=== PATIENT | female | born 1995 | race Caucasian/White ===

== ENCOUNTER 2023-08-10 12:39 | Emergency (ER) | payer SELFPAY ==
[2023-08-10 12:57] VITALS: BP 132/89; PULSE 99; RESP 16; TEMP 36.9; O2SAT 98; BMI 22.7
[2023-08-10 13:27] LABS: Add Manual Diff / Slide Review NO; Basophils Absolute Auto 0 /uL (0-100); Basophils Percent Auto 0.6 % (0-2); Eosinophils Absolute Auto 0 /uL (0-450); Eosinophils Percent Auto 0.3 % (2-4); Hemoglobin 14.5 g/dL (12.0-16.0); Lymphocytes Absolute Auto 2300 /uL (1100-4500); Mean Corpuscular HGB Conc 34.5 % (30-36); Mean Corpuscular Hemoglobin 33.4 PG (26-34); Mean Corpuscular Volume 96.7 fL (80-100); Monocytes Absolute Auto 500 /uL (0-900); Monocytes Percent Auto 9.6 % (3-14); Neutrophils Absolute Auto 2400 /uL (1500-7000); Neutrophils Percent Auto 45.5 % (50-75); Platelet Count 298 X10^3/uL (150-400); Red Blood Cell Count 4.35 X10^6/uL (4.0-5.2); Red Cell Distribution Width 11.9 % (11.6-14.8); White Blood Cell Count 5.2 X10^3/uL (4.5-11.0)
--- NOTE | 2023-08-10 13:34 | PC.NURSE ---
Unsteady gait with ambulation, alcohol on breath. hard to quantify how much I have drank, alot EMS reports many buzz balls, boxes of wine in hotel room.
[2023-08-10 13:40] LABS: Acetaminophen < 10 ug/mL (10-30); Alanine Aminotransferase 26 IU/L (<35); Albumin 4.5 g/dL (3.5-5.0); Albumin Globulin Ratio 1.5 (1.0-2.8); Alkaline Phosphatase 77 U/L (38-126); Aspartate Aminotransferase 58 IU/L (14-36); BUN Creatinine Ratio 8.5 (6-22); Bilirubin Total 0.4 mg/dL (0.2-1.3); Blood Urea Nitrogen 6 mg/dL (7-17); Carbon Dioxide 23 mmol/L (22-32); Chloride 109 mmol/L (98-107); Estimated Glomerular Filt Rate > 60 mL/min (>60); Globulin 3.1 g/dL (1.7-4.1); Glucose 104 mg/dL (70-100); HEMOLYSIS < 15 (0-50); Potassium 3.9 mmol/L (3.4-5.1); Salicylate < 1.0 mg/dL (<20); Sodium 143 mmol/L (137-145); Total Protein 7.6 g/dL (6.3-8.2)
[2023-08-10 13:47] LABS: Ethanol (ETOH) 382 mg/dL
[2023-08-10 14:05] LABS: Free T4, Direct Thyroxine 1.27 ng/dL (0.78-2.19)
[2023-08-10 14:16] LABS: UR Morphine/Opiate cutoff 300 Negative (Negative); Ur Creatinine Normal (Normal); Ur Specific Gravity Normal (Normal); Urine Amphetamines Negative (Negative); Urine Barbiturates Negative (Negative); Urine Benzodiazepines Negative (Negative); Urine Cocaine Negative (Negative); Urine MDMA Negative (Negative); Urine Methadone Negative (Negative); Urine Methamphetamines Negative (Negative); Urine Oxycodone Negative (Negative); Urine Phencyclidine Negative (Negative); Urine Tetrahydrocannabinol Negative (Negative); Urine Tricyclic Antidepressant Negative (Negative); Urine pH Normal (Normal)
[2023-08-10 14:19] LABS: Thyroid Stimulating Hormone 0.659 uIU/mL (0.47-4.68)
--- NOTE | 2023-08-10 14:20 | ED.GENADULT ---
HPI - General Adult <Laci Hamilton DO - Last Filed: 08/15/23 07:08> General Chief complaint: Toxicology Problem Stated complaint: ETOH Time Seen by Provider: 08/10/23 13:20 Source: patient and EMS Mode of arrival: EMS Limitations: no limitations History of Present Illness HPI narrative: Patient is a 27-year-old female. States she does not have any diagnosed with mental health issues. Has had a problem with alcohol in the past. She states that earlier today she had some sort of interaction with her sister. This caused her to want to hurt herself. States she tried to stab herself in the left side of the neck. She was also been drinking alcohol. Denies any other medical problems. She has seen a therapist in the past with the last time she saw the therapist was earlier this year. No prior admissions to the hospital for mental health issues. Has had suicidal thoughts in the past but has never acted on them. Review of Systems <Laci Hamilton DO - Last Filed: 08/15/23 07:08> Constitutional Constitutional: Reports system reviewed and no additional complaints, except as documented Cardiovascular Cardiovascular: Reports system reviewed and no additional complaints, except as documented Respiratory Respiratory: Reports system reviewed and no additional complaints, except as documented Integumentary/Breasts Skin/Breast: Reports system reviewed and no additional complaints, except as documented Neurologic Neurologic: Reports system reviewed and no additional complaints, except as documented Psychiatric Psychiatric: Reports system reviewed and no additional complaints, except as documented Patient History <Laci Hamilton DO - Last Filed: 08/15/23 07:08> Social History Smoking Status: Never smoker Smoking Status: Never smoker alcohol intake frequency: 3 or more drinks per day Alcohol type: wine Substance Use Type: does not use Exam <Laci Hamilton DO - Last Filed: 08/15/23 07:08> Initial Vital Signs Initial Vital Signs: Vital Signs Temperature 98.5 F 08/10/23 12:57 Pulse Rate 99 H 08/10/23 12:57 Respiratory Rate 16 08/10/23 12:57 Blood Pressure 132/89 08/10/23 12:57 Pulse Oximetry 98 08/10/23 12:57 Oxygen Delivery Method Room Air 08/10/23 12:57 Const General: cooperative, comfortable and No ill appearing HENAK Head: normal to inspection and normocephalic Neck Neck: normal visual inspection Resp Effort & Inspection: normal respiratory effort Auscultation: clear to auscultation bilaterally Cardio Rate: regular rate Rhythm: regular rhythm Skin Other: No signs of any scratches or lacerations in the neck region. Neuro General: patient alert, patient awake and patient oriented x3 Psych Other: Patient does have a flat affect. He is calm. Is cooperative. Does have suicidal thoughts. <Sanjay Mendoza MD - Last Filed: 08/11/23 15:28> Initial Vital Signs Initial Vital Signs: Vital Signs Temperature 98.5 F 08/10/23 12:57 Pulse Rate 99 H 08/10/23 12:57 Respiratory Rate 16 08/10/23 12:57 Blood Pressure 132/89 08/10/23 12:57 Pulse Oximetry 98 08/10/23 12:57 Oxygen Delivery Method Room Air 08/10/23 12:57 Course <Laci Hamilton DO - Last Filed: 08/15/23 07:08> Orders Ordered: ED Orders 08/10/23 17:05 ETOH [Ethanol (ETOH)] Stat 08/10/23 22:00 ETOH [Ethanol (ETOH)] Stat Vital Signs Vital signs: Vital Signs - 8 hr 08/10/23 21:03 Pulse Rate 102 H Respiratory Rate 14 Blood Pressure 129/84 Pulse Oximetry 96 Oxygen Delivery Method Room Air <Sanjay Mendoza MD - Last Filed: 08/11/23 15:28> Orders Ordered: ED Orders 08/10/23 17:05 ETOH [Ethanol (ETOH)] Stat 08/10/23 22:00 ETOH [Ethanol (ETOH)] Stat Vital Signs Vital signs: Vital Signs - 8 hr 08/10/23 21:03 Pulse Rate 102 H Respiratory Rate 14 Blood Pressure 129/84 Pulse Oximetry 96 Oxygen Delivery Method Room Air Medical Decision Making <DO Timi Zimmer Last Filed: 08/15/23 07:08> Lab Data 08/10/23 13:15 08/10/23 13:15 Labs: Lab Results 08/10/23 08/10/23 08/10/23 Range/Units 13:15 14:03 14:35 WBC 5.2 (4.5-11.0) X10^3/uL RBC 4.35 (4.0-5.2) X10^6/uL Hgb 14.5 (12.0-16.0) g/dL Hct 42.0 (36-46) % MCV 96.7 (80-100) fL MCH 33.4 (26-34) PG MCHC 34.5 (30-36) % RDW 11.9 (11.6-14.8) % Plt Count 298 (150-400) X10^3/uL Neut % (Auto) 45.5 L (50-75) % Lymph % (Auto) 44.0 H (25-40) % Woodson % (Auto) 9.6 (3-14) % Eos % (Auto) 0.3 L (2-4) % Baso % (Auto) 0.6 (0-2) % Neut # (Auto) 2400 (6268-2218) /uL Lymph # (Auto) 2300 (3420-9509) /uL Woodson # (Auto) 500 (0-900) /uL Eos # (Auto) 0 (0-450) /uL Baso # (Auto) 0 (0-100) /uL Sodium 143 (137-145) mmol/L Potassium 3.9 (3.4-5.1) mmol/L Chloride 109 H (98-107) mmol/L Carbon Dioxide 23 (22-32) mmol/L BUN 6 L (7-17) mg/dL Creatinine 0.71 (0.52-1.04) mg/dL Estimated GFR > 60 (>60) mL/min BUN/Creatinine Ratio 8.5 (6-22) Glucose 104 H (70-100) mg/dL Calcium 8.0 L (8.4-10.2) mg/dL Total Bilirubin 0.4 (0.2-1.3) mg/dL AST 58 H (14-36) IU/L ALT 26 (<35) IU/L Alkaline Phosphatase 77 (38-126) U/L Total Protein 7.6 (6.3-8.2) g/dL Albumin 4.5 (3.5-5.0) g/dL Globulin 3.1 (1.7-4.1) g/dL Albumin/Globulin Ratio 1.5 (1.0-2.8) TSH 0.659 (0.47-4.68) uIU/mL Free T4 1.27 (0.78-2.19) ng/dL Salicylates < 1.0 (<20) mg/dL U Opiates 300ng/mL cut Negative (Negative) Ur Oxycodone Screen Negative (Negative) Urine Methadone Screen Negative (Negative) Acetaminophen < 10 (10-30) ug/mL Ur Barbiturates Screen Negative (Negative) U Tricyclic Antidepress Negative (Negative) Ur Phencyclidine Scrn Negative (Negative) Ur Amphetamines Screen Negative (Negative) U Methamphetamines Scrn Negative (Negative) Ur MDMA Scrn (Ecstasy) Negative (Negative) U Benzodiazepines Scrn Negative (Negative) Urine Cocaine Screen Negative (Negative) U Marijuana (THC) Screen Negative (Negative) Urine pH Normal (Normal) Urine Specific Cowden Normal (Normal) Ethyl Alcohol 382 H ( - 10) mg/dL Ur Creatinine Normal (Normal) SARS-CoV-2 (PCR) Negative (Negative) 08/10/23 08/10/23 Range/Units 17:05 22:00 WBC (4.5-11.0) X10^3/uL RBC (4.0-5.2) X10^6/uL Hgb (12.0-16.0) g/dL Hct (36-46) % MCV (80-100) fL MCH (26-34) PG MCHC (30-36) % RDW (11.6-14.8) % Plt Count (150-400) X10^3/uL Neut % (Auto) (50-75) % Lymph % (Auto) (25-40) % Woodson % (Auto) (3-14) % Eos % (Auto) (2-4) % Baso % (Auto) (0-2) % Neut # (Auto) (7325-7141) /uL Lymph # (Auto) (2690-9275) /uL Woodson # (Auto) (0-900) /uL Eos # (Auto) (0-450) /uL Baso # (Auto) (0-100) /uL Sodium (137-145) mmol/L Potassium (3.4-5.1) mmol/L Chloride (98-107) mmol/L Carbon Dioxide (22-32) mmol/L BUN (7-17) mg/dL Creatinine (0.52-1.04) mg/dL Estimated GFR (>60) mL/min BUN/Creatinine Ratio (6-22) Glucose (70-100) mg/dL Calcium (8.4-10.2) mg/dL Total Bilirubin (0.2-1.3) mg/dL AST (14-36) IU/L ALT (<35) IU/L Alkaline Phosphatase (38-126) U/L Total Protein (6.3-8.2) g/dL Albumin (3.5-5.0) g/dL Globulin (1.7-4.1) g/dL Albumin/Globulin Ratio (1.0-2.8) TSH (0.47-4.68) uIU/mL Free T4 (0.78-2.19) ng/dL Salicylates (<20) mg/dL U Opiates 300ng/mL cut (Negative) Ur Oxycodone Screen (Negative) Urine Methadone Screen (Negative) Acetaminophen (10-30) ug/mL Ur Barbiturates Screen (Negative) U Tricyclic Antidepress (Negative) Ur Phencyclidine Scrn (Negative) Ur Amphetamines Screen (Negative) U Methamphetamines Scrn (Negative) Ur MDMA Scrn (Ecstasy) (Negative) U Benzodiazepines Scrn (Negative) Urine Cocaine Screen (Negative) U Marijuana (THC) Screen (Negative) Urine pH (Normal) Urine Specific Cowden (Normal) Ethyl Alcohol 298 H 169 H ( - 10) mg/dL Ur Creatinine (Normal) SARS-CoV-2 (PCR) (Negative) Point of Care Testing Test Results Negative Urine Dip Bedside Urine Glucose Negative Bedside Urine Bilirubin - Negative Bedside Urine Ketone - Negative Urine Specific Cowden 1.005 Bedside Urine Occult Blood - Negative Bedside Urine pH 6.0 Bedside Urine Protein - Negative Bedside Urine Urobilinogen - Negative Bedside Urine Nitrite - Negative Bedside Urine Leukocytes - Negative Esterase Point of care testing: Point of Care Testing Test Results Negative Urine Dip Bedside Urine Glucose Negative Bedside Urine Bilirubin - Negative Bedside Urine Ketone - Negative Urine Specific Cowden 1.005 Bedside Urine Occult Blood - Negative Bedside Urine pH 6.0 Bedside Urine Protein - Negative Bedside Urine Urobilinogen - Negative Bedside Urine Nitrite - Negative Bedside Urine Leukocytes - Negative Esterase MDM Narrative Medical decision making narrative: Patient was voluntary. Is medically cleared other than her alcohol level is significantly elevated although she was alert and oriented with a GCS of 15. There was no signs of trauma with regard to the reported event where she tried to stab herself in her neck. No indication for any imaging studies. Social work has been consulted. Care turned over to Dr. Mendoza to follow-up with repeated alcohol levels with anticipation of transfer to rehab facility. <Sanjay Mendoza MD - Last Filed: 08/11/23 15:28> Lab Data Labs: Lab Results 08/10/23 08/10/23 08/10/23 Range/Units 13:15 14:03 14:35 WBC 5.2 (4.5-11.0) X10^3/uL RBC 4.35 (4.0-5.2) X10^6/uL Hgb 14.5 (12.0-16.0) g/dL Hct 42.0 (36-46) % MCV 96.7 (80-100) fL MCH 33.4 (26-34) PG MCHC 34.5 (30-36) % RDW 11.9 (11.6-14.8) % Plt Count 298 (150-400) X10^3/uL Neut % (Auto) 45.5 L (50-75) % Lymph % (Auto) 44.0 H (25-40) % Woodson % (Auto) 9.6 (3-14) % Eos % (Auto) 0.3 L (2-4) % Baso % (Auto) 0.6 (0-2) % Neut # (Auto) 2400 (9444-5586) /uL Lymph # (Auto) 2300 (3194-7676) /uL Woodson # (Auto) 500 (0-900) /uL Eos # (Auto) 0 (0-450) /uL Baso # (Auto) 0 (0-100) /uL Sodium 143 (137-145) mmol/L Potassium 3.9 (3.4-5.1) mmol/L Chloride 109 H (98-107) mmol/L Carbon Dioxide 23 (22-32) mmol/L BUN 6 L (7-17) mg/dL Creatinine 0.71 (0.52-1.04) mg/dL Estimated GFR > 60 (>60) mL/min BUN/Creatinine Ratio 8.5 (6-22) Glucose 104 H (70-100) mg/dL Calcium 8.0 L (8.4-10.2) mg/dL Total Bilirubin 0.4 (0.2-1.3) mg/dL AST 58 H (14-36) IU/L ALT 26 (<35) IU/L Alkaline Phosphatase 77 (38-126) U/L Total Protein 7.6 (6.3-8.2) g/dL Albumin 4.5 (3.5-5.0) g/dL Globulin 3.1 (1.7-4.1) g/dL Albumin/Globulin Ratio 1.5 (1.0-2.8) TSH 0.659 (0.47-4.68) uIU/mL Free T4 1.27 (0.78-2.19) ng/dL Salicylates < 1.0 (<20) mg/dL U Opiates 300ng/mL cut Negative (Negative) Ur Oxycodone Screen Negative (Negative) Urine Methadone Screen Negative (Negative) Acetaminophen < 10 (10-30) ug/mL Ur Barbiturates Screen Negative (Negative) U Tricyclic Antidepress Negative (Negative) Ur Phencyclidine Scrn Negative (Negative) Ur Amphetamines Screen Negative (Negative) U Methamphetamines Scrn Negative (Negative) Ur MDMA Scrn (Ecstasy) Negative (Negative) U Benzodiazepines Scrn Negative (Negative) Urine Cocaine Screen Negative (Negative) U Marijuana (THC) Screen Negative (Negative) Urine pH Normal (Normal) Urine Specific Cowden Normal (Normal) Ethyl Alcohol 382 H ( - 10) mg/dL Ur Creatinine Normal (Normal) SARS-CoV-2 (PCR) Negative (Negative) 08/10/23 08/10/23 Range/Units 17:05 22:00 WBC (4.5-11.0) X10^3/uL RBC (4.0-5.2) X10^6/uL Hgb (12.0-16.0) g/dL Hct (36-46) % MCV (80-100) fL MCH (26-34) PG MCHC (30-36) % RDW (11.6-14.8) % Plt Count (150-400) X10^3/uL Neut % (Auto) (50-75) % Lymph % (Auto) (25-40) % Woodson % (Auto) (3-14) % Eos % (Auto) (2-4) % Baso % (Auto) (0-2) % Neut # (Auto) (3237-7916) /uL Lymph # (Auto) (9688-5235) /uL Woodson # (Auto) (0-900) /uL Eos # (Auto) (0-450) /uL Baso # (Auto) (0-100) /uL Sodium (137-145) mmol/L Potassium (3.4-5.1) mmol/L Chloride (98-107) mmol/L Carbon Dioxide (22-32) mmol/L BUN (7-17) mg/dL Creatinine (0.52-1.04) mg/dL Estimated GFR (>60) mL/min BUN/Creatinine Ratio (6-22) Glucose (70-100) mg/dL Calcium (8.4-10.2) mg/dL Total Bilirubin (0.2-1.3) mg/dL AST (14-36) IU/L ALT (<35) IU/L Alkaline Phosphatase (38-126) U/L Total Protein (6.3-8.2) g/dL Albumin (3.5-5.0) g/dL Globulin (1.7-4.1) g/dL Albumin/Globulin Ratio (1.0-2.8) TSH (0.47-4.68) uIU/mL Free T4 (0.78-2.19) ng/dL Salicylates (<20) mg/dL U Opiates 300ng/mL cut (Negative) Ur Oxycodone Screen (Negative) Urine Methadone Screen (Negative) Acetaminophen (10-30) ug/mL Ur Barbiturates Screen (Negative) U Tricyclic Antidepress (Negative) Ur Phencyclidine Scrn (Negative) Ur Amphetamines Screen (Negative) U Methamphetamines Scrn (Negative) Ur MDMA Scrn (Ecstasy) (Negative) U Benzodiazepines Scrn (Negative) Urine Cocaine Screen (Negative) U Marijuana (THC) Screen (Negative) Urine pH (Normal) Urine Specific Cowden (Normal) Ethyl Alcohol 298 H 169 H ( - 10) mg/dL Ur Creatinine (Normal) SARS-CoV-2 (PCR) (Negative) Point of Care Testing Test Results Negative Urine Dip Bedside Urine Glucose Negative Bedside Urine Bilirubin - Negative Bedside Urine Ketone - Negative Urine Specific Cowden 1.005 Bedside Urine Occult Blood - Negative Bedside Urine pH 6.0 Bedside Urine Protein - Negative Bedside Urine Urobilinogen - Negative Bedside Urine Nitrite - Negative Bedside Urine Leukocytes - Negative Esterase Point of care testing: Point of Care Testing Test Results Negative Urine Dip Bedside Urine Glucose Negative Bedside Urine Bilirubin - Negative Bedside Urine Ketone - Negative Urine Specific Cowden 1.005 Bedside Urine Occult Blood - Negative Bedside Urine pH 6.0 Bedside Urine Protein - Negative Bedside Urine Urobilinogen - Negative Bedside Urine Nitrite - Negative Bedside Urine Leukocytes - Negative Esterase MDM Narrative Medical decision making narrative: Patient was voluntary. Is medically cleared other than her alcohol level is significantly elevated although she was alert and oriented with a GCS of 15. There was no signs of trauma with regard to the reported event where she tried to stab herself in her neck. No indication for any imaging studies. Social work has been consulted. Care turned over to Dr. Mendoza to follow-up with repeated alcohol levels with anticipation of transfer to rehab facility. Reji, 08/10/2023, 6:00 p.m.. Transfer of care note. 27-year-old female with history of alcohol abuse, suicidal ideation, initial alcohol level 300s, on repeat to 98, persisting suicidal ideation, screening labs otherwise unremarkable. Medically cleared. Likely will be transferred to psychiatric facility [facility], they would prefer blood alcohol level be less than 250, anticipated redraw 10:00 p.m.. Assumed interim care. 0020, repeat alcohol level proximally 10:00 p.m. was 169. Patient feels better, no longer suicidal, does not want to be transferred. Patient now would like to go home, has her car parked [employer] but lives in [place]. She would be above the legal blood alcohol limit right now. We advised he stay here for further detoxification until proximally 5:00 a.m., then discharge would likely be below legal limit. 0500, stable for discharge, discharged per patient request, she will take Uber o her [employer] car, drive home to [facility], follow-up Sunday with her [facility] care provider. Critical Care Time <Sanjay Mendoza MD - Last Filed: 08/11/23 15:28> Critical Care Time Critical Care Time: Yes Total Critical Care Time: 31 Attestation: The high probability of a clinically significant, sudden or life threatening deterioration of the [mental health, psychosocial] system(s) required my full and direct attention, intervention and personal management. The aggregate critical care time was [31] minutes. This time is in addition to time spent performing reported procedures but includes the following: [x] Data Review and interpretation [x] Patient assessment and monitoring of vital signs [x] Documentation [x] Medication orders and management Discharge Plan Departure Patient Disposition: Home Clinical Impression: Alcoholic intoxication, Suicidal ideation Activity Restrictions/Additional Instructions: Initial suicidal ideation in context of alcohol use, once more sober had no further suicidal thoughts, requests to go home. Serial blood tests showed declining blood alcohol level, which should be below the legal driving limit proximally 4:00 a.m., anticipate discharge at 5:00 a.m. Encouraged to stop drinking alcohol. Follow up with mental health services as an outpatient encouraged. Follow up with PCP advised on Sunday to have coordinate further care as an outpatient. Return to this/nearest emergency department for any change worsening symptoms or any concerns Referrals: Miscellaneous,Doctor, [Primary Care Provider] - Stand Alone Forms: Patient Portal/API
[2023-08-10 15:06] LABS: COVID19 -Nasal RAPID Negative (Negative)
--- NOTE | 2023-08-10 17:25 | CM.SWNOTE ---
Addendum entered by Mabel Mejia 08/10/23 18:15: CYBER SECURITY MANAGER encouraged patient to apply for [facility] Medicaid as patient states she is currently in between employment. Registration provided patient with nella packet with Medicaid website and contact information, CYBER SECURITY MANAGER encouraged patient contact them at her earliest convenience. Mabel Mejia, [facility] Original Note: ED CYBER SECURITY MANAGER Assessment CYBER SECURITY MANAGER - Front Attendant Assessment CYBER SECURITY MANAGER/Front Attendant Assessment Time Spent with Patient Start date 08/10/23 Visit Start Time 16:45 End date 08/10/23 Visit End Time 17:05 Total time Care Management spent on 20 minutes patient visit-in minutes Substance Abuse Screening Include Onset, Duration, Intensity Presenting Problem Patient presents to ED via EMS due to concern for ETOH use and SI thoughts of plans last night. Patient was found in hotel room with several ETOH containers of various kinds. It is reported that patient was on a 4 day escamilla and presents to ED seeking detox and ETOH treatment. Precipitating Event(s) Patient reports she moved here recently and has been staying at sister's house but has had agruments with sister and family. 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 Patient states that she experienced a messy long divorce and is now prior to moving to the area. Patient Strengths Patient is seeking help and wants treatment. Current Behavioral Health Provider(s) No current provider, patient Include Facility, Provider, Ph. # states hx of seeing a couples counselor. Family Hx of Behavioral Abuse It is reported that patient's mother when she was 9 y/ o. Rehab Facilities? ((Date(s), Location(s) Patient denies hx of rehab or ) detox. History of Withdrawal? Seizures? Patient denies hx of seizures, patient endorses hx of shakiness, dizziness and headaches. Longest Period of Sobriety Patient states she has been drinking the last 18 years. Psychosocial information & Support Patient is 27 y/o female who Systems was staying in a hotel in [place] and prior to that living with sister in [place]. Patient's 8 y/o daughter is currently with patient's sister. 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 Legal Concerns Legal Matters - Outstanding Issues None reported Mental Status Orientation (Person/Place/Time) A/Ox4 Stated Mood I want help Affect (Congruent with Mood?) tearful at times, euthymic, congruent with mood. Thought Content - Specify/Describe None reported Obsessions, Delusions, Hallucinations Thought Processes (Eijojum-Htoeemet-Fwsr coherent, goal directed Pnscjbwk-Ncowecib-Uoueduuxzi- Bhcobofikcfzzp-Sbcqlbl-Dpfagwqatjbg- Thought Blocking) Speech (Afwzuu-Ffqa-Gmagmwt-Rapid-Soft- soft/normal Loud-Pressured) Motor (Iymvcm-Wauixcaqt-Kpvz-Other) normal Insight (Zkuy-Yzkl-Gvcv/Limited) fair Judgement (Nonk-Sytb-Ywsk/Limited) fair Impulse Control (Adequate-Impaired) adequate Memory (Ibyowpooe-Euvudu-Gkifbe, intact, not formally assessed Impaired-Intact) Concentration (Intact-Impaired) intact Attention (Intact-Impaired) intact Behavior (Appropriate-Inappropriate) appropriate Additional Comment Patient presents as calm, cooperative and communicative. Risk Assessment Suicidal Ideation (Plan) No Homicidal Ideation (Plan) No Comment Patient denies SI and HI. Patient states last night she had thoughts and plans of cutting self with scissors in the carotid artery patient states that when she held up scissors she got scared and did not proceed to do so. Patient denies SI, wants to seek help and address substance use. Intervention Intervention CYBER SECURITY MANAGER calls [facility] and it is reported that they have beds. CYBER SECURITY MANAGER enters room to meet with patient and discusses seeking placement at detox and conducting detox screen call. Patient indicates agreement and understanding. Patient endorses increase in life stressors, hx of SI, no formal MH dx but struggling with anxiety and depression. Patient endorses she is here to seek help and wants to pursue detox. Patient states she has been drinking quite a bit of all sorts of ETOH the last 3-4 days and in recent months. Patient states in the last few days she has been drinking 3- 4 drinks of any kind an hour. Patient's current BAL is 382, new drawing after four hours was just drawn. Patient participates in detox screening call with [facility]. It is reported by intake that if accepted patient could have scheduled bed time at [id number]. It is the opinion of this CYBER SECURITY MANAGER that patient would benefit from and be appropriate for detox stabilization. CYBER SECURITY MANAGER reviews this with ED provider who indicates agreement and understanding. Plan RA Plan CYBER SECURITY MANAGER to seek detox bed for patient upon medical clearance . Mabel Mejia, TEMPORARY OFFICE ASSISTANT
[2023-08-10 17:32] LABS: Ethanol (ETOH) 298 mg/dL
--- NOTE | 2023-08-10 18:54 | CM.SWNOTE ---
ED WEED SCIENCE RESEARCH TECHNICIAN Note WEED SCIENCE RESEARCH TECHNICIAN calls [facility] regarding reviewing of referral, WEED SCIENCE RESEARCH TECHNICIAN explains patient's name correction from 'Juan' to correct last name 'Bro'. [facility] states that the provider is currently reviewing patient and they do not need the referral packet with updated last name. WEED SCIENCE RESEARCH TECHNICIAN [facility] ED upon patient disposition and acceptance. Plan: ED staff to f/u with [facility] regarding patient's POC. Patient will need transport to [facility] if accepted. WEED SCIENCE RESEARCH TECHNICIAN to notify EUGENIO Stephens
--- NOTE | 2023-08-10 19:40 | PC.NURSE ---
Maximiliano phoned to inform us that the patient has been excepted, this nurse spoke to the patient and she had changed her mind. She want's to be discharged, Dr Mendoza notified. He has requested that patient wait a couple of hours for the blood ETOH to drop more so that she can have a safe discharge. Spoke with patient again and she has agreed to stay here in the ED a while longer.
--- NOTE | 2023-08-10 19:48 | PC.NURSE ---
Touched base with patient. She didn't recall meeting this writter upon her arrival to ED. Reminded her how tearful she was upon arrival and her desire for help with her drinking. Patient states I don't have any one in [place], I am talking to my dad about getting back to [place]. He is sboer irght now but has been to rehab three times. I am not sure if it is the best place for me but don't know that i have much else Patient tearful, agreeable to staying in ER until legally sober. Patient reminded that the detox bed is still available if she changes her mind. Patient wants to talk with dad and think about it. Call light in reach.
[2023-08-10 21:03] VITALS: BP 129/84; PULSE 102; RESP 14; O2SAT 96
[2023-08-10 22:17] LABS: Ethanol (ETOH) 169 mg/dL
[2023-08-11 04:56] VITALS: BP 116/62; PULSE 70; RESP 16; TEMP 36.2; O2SAT 99
== END 2023-08-11 04:50 | disposition home or self-care (01) ==
PROVIDERS: Emergency Medicine; Emergency Provider Emergency Medicine
DX: F10.129 Alcohol abuse with intoxication, unspecified (principal); Y90.8 Blood alcohol level of 240 mg/100 ml or more; R45.851 Suicidal ideations; Z11.52 Encounter for screening for COVID-19
CPT/HCPCS: 36415; 80053; 80305; 80320; 80329; 81003; 81025; 84439; 84443; 85025; 87635; 99284; G0480